=== PATIENT | female | born 1980 | race Caucasian/White ===

== ENCOUNTER 2016-10-30 23:13 | Emergency (ER) | payer BC ==
[2016-10-31 00:23] LABS: HEMOGLOBIN 14.5 gm/dl (12.3-15.3); RED BLOOD COUNT 4.7 M/UL (4.00-5.10); WHITE BLOOD COUNT 22.6 K/UL (4.5-11.0)
[2016-10-31 00:44] LABS: BUN/CREATININE RATIO 20 (0-10)
== END 2016-10-31 06:10 | disposition home or self-care (01) ==
LOC: ER1 23:13
PROVIDERS: Student in an Organized Health Care Education/Training Program
DX: K52.9 Noninfective gastroenteritis and colitis, unspecified (principal); N12 Tubulo-interstitial nephritis, not specified as acute or chronic; I10 Essential (primary) hypertension; F17.210 Nicotine dependence, cigarettes, uncomplicated; Z79.899 Other long term (current) drug therapy
CPT/HCPCS: 36415; 80053; 81001; 83690; 84703; 85025; 87077; 87086; 87186; 96361; 96365; 96367; 96375; 99284; C9113; J0696; J2270; J2405; J2550; J7050; Q9962

== ENCOUNTER 2022-01-03 10:03 | Emergency (ER) | payer OTHER ==
[~2022-01-03 10:03] MED LIST: BACTRIM DS TAB1 EACH PO; BENTYL 20MG TAB20 MG PO; BUSPIRONE HCL7.5 MG PO; CIPRO500 MG PO; DIFLUCAN150 MG PO; FEOSOL325 MG PO; HYDRALAZINE HCL25 MG PO; KEFLEX CAP 500500 MG PO; LEVAQUIN750 MG PO; NORVASC 5 MG TAB5 MG PO; REGLAN10 MG PO; ZOLOFT50 MG PO
[2022-01-03] MEDS ORDERED: CEPHALEXIN500 MG PO (12:58)
[2022-01-03] MEDS ORDERED: BACTROBAN OINT22 GM EXT (13:00)
== END 2022-01-03 13:10 | disposition home or self-care (01) ==
LOC: ER1 10:03
DX: S50.01XA Contusion of right elbow, initial encounter (principal); I10 Essential (primary) hypertension; F17.200 Nicotine dependence, unspecified, uncomplicated; W01.0XXA Fall on same level from slipping, tripping and stumbling without subsequent striking against object, initial encounter
CPT/HCPCS: 73080; 99283

== ENCOUNTER 2022-03-24 13:20 | Emergency (ER) | payer OTHER ==
[~2022-03-24 13:20] MED LIST changes: +BACTROBAN OINT22 GM EXT; +CEPHALEXIN500 MG PO
[2022-03-24 13:52] LABS: HEMOGLOBIN 13.5 gm/dl (12.3-15.3); RED BLOOD COUNT 4.4 M/UL (4.00-5.10); WHITE BLOOD COUNT 6.6 K/UL (4.5-11.0)
[2022-03-24 14:14] LABS: BUN/CREATININE RATIO 20 (0-10)
== END 2022-03-24 16:34 | disposition left against medical advice (07) ==
LOC: ER1 13:20
PROVIDERS: Emergency Medicine
DX: Z53.21 Procedure and treatment not carried out due to patient leaving prior to being seen by health care provider (principal)
CPT/HCPCS: 80053; 81001; 85025; 86850; 86900; 86901